=== PATIENT | male | born 1965 | race Caucasian/White ===

== ENCOUNTER 2019-04-15 07:34 | Emergency (ER) | payer OTHER ==
[~2019-04-15] VITALS: Ht 172.7 cm; Wt 63.5 kg
--- OUTSIDE RECORDS SUMMARY | 2019-04-15 08:36 | XMS ---
PreManage Notification: [place] [place] [employer] Work[employer] Events No recent Security Events currently on file CRITERIA MET - Group Notification CARE PROVIDERS There are no care providers on record at this time. Crista has no Care Guidelines for this patient. [place] VISIT COUNT (12 MO.) 1 KENAN Castillo TOTAL 1 NOTE: Visits indicate total known visits. ED/C VISIT TRACKING (12 MO.) 04/15/2019 07:37 [facility] [place] TYPE: Emergency COMPLAINT: - RT SHOULDER/NECK PAIN/INJURY INPATIENT VISIT TRACKING (12 MO.) No inpatient visits to display in this time frame [email or web address]
== END 2019-04-15 08:34 | disposition home or self-care (01) ==
LOC: ED 07:34
DX: S46.811A Strain of other muscles, fascia and tendons at shoulder and upper arm level, right arm, initial encounter (principal); M54.2 Cervicalgia; X50.0XXA Overexertion from strenuous movement or load, initial encounter
CPT/HCPCS: 99283

== ENCOUNTER 2019-04-19 09:55 | Emergency (ER) | payer OTHER ==
[~2019-04-19] VITALS: Ht 172.7 cm; Wt 63.5 kg
--- OUTSIDE RECORDS SUMMARY | 2019-04-19 09:58 | XMS ---
PreManage Notification: [place] [place] [employer]ipel[employer] Events No recent Security Events currently on file CRITERIA MET - Group Notification - [facility] - 2 Visits in 30 Days CARE PROVIDERS There are no care providers on record at this time. Crista has no Care Guidelines for this patient. [facility]12 MO[facility] NOTE: Visits indicate total known visits. ED/C VISIT TRACKING (12 MO.) [facility] COMPLAINT: - NECK PAIN 04/15/2019 07:[address] [facility] [facility] [place] TYPE: Emergency COMPLAINT: - RT SHOULDER/NECK PAIN/INJURYY DIAGNOSES: - Cervicalgia - Strain of other muscles, fascia and tendons at shoulder and upper arm level, right arm, initial encounter - Overexertion from strenuous movement or load, initial encounter INPATIENT VISIT TRACKING (12 MO.) No inpatient visits to display in this time frame [id number]
[2019-04-19] MEDS ORDERED: MAPAP500 M1 PO (10:12)
[2019-04-19] MEDS ORDERED: CYCLOBENZAPRINE10 MG PO (11:47)
== END 2019-04-19 11:55 | disposition home or self-care (01) ==
LOC: ED 09:55
DX: S16.1XXA Strain of muscle, fascia and tendon at neck level, initial encounter (principal); Z88.0 Allergy status to penicillin; W22.8XXA Striking against or struck by other objects, initial encounter
CPT/HCPCS: 70450; 72125; 99283-25